=== PATIENT | male | born 1995 | race Caucasian/White ===

== ENCOUNTER 2017-06-24 10:12 | Inpatient (IN) | payer OTHER ==
[~2017-06-24] VITALS: Ht 188 cm; Wt 120.8 kg
[~2017-06-24 10:12] MED LIST: BACTRIM,SEPT1 TABLET PO; BENADRYL50 MG PO; BENZTROPINE MESY1 MG PO; KEFLEX500 MG PO; PEN-VEE K,VEET500 MG PO
[2017-06-24 11:18] LABS: HEMATOCRIT 43.1 % (38.0-50.0); MCH 29.6 PG (29.0-34.0); MCHC 35.3 G/DL (30.0-36.0); MEAN PLAT.VOLUME 10.6 uM^3 (9.0-12.4); PLATELET COUNT 181 K/uL (156-360); RBC DIS.WIDTH-CV 11.7 % (11.8-14.6); RBC DIS.WIDTH-SD 35.5 % (39-53); RED BLOOD COUNT 5.13 M/uL (4.00-5.50); WHITE BLOOD COUNT 7.1 K/uL (4.1-10.2)
[2017-06-24 11:32] LABS: CHLORIDE 107 mEq/L (99-109); POTASSIUM 4.3 mEq/L (3.7-5.4); SODIUM 138 mEq/L (136-147)
[2017-06-24 11:33] LABS: ADD MIUA? NO; BILIRUBIN NEGATIVE; BLOOD NEGATIVE; COLOR YELLOW ((YELLOW)); GLUCOSE (STRIP) NEGATIVE; KETONES NEGATIVE; LEUKOCYTES NEGATIVE; NITRITE NEGATIVE; PROTEIN (STRIP) NEGATIVE; SPECIFIC GRAVITY 1.015 (1.000-1.030); UROBILINOGEN 0.2 MG/DL (0.2-1.0)
[2017-06-24 11:35] LABS: GLUCOSE 106 mg/dL (70-99)
[2017-06-24 11:36] LABS: ANION GAP 7 MEQ/L (2-14)
[2017-06-24 11:37] LABS: SERUM ETHYL ALCOHOL < 10 mg/dL
[2017-06-24 11:38] LABS: ALKALINE PHOSPHATASE 66 IU/L (3-129); GFR ESTIMATE (CALCULATED) > 59 mL/min/ (58.99-99999)
[2017-06-24 11:39] LABS: UREA NITROGEN (BUN) 10 mg/dL (9-23)
[2017-06-24 11:43] LABS: AMPHETAMINE NEGATIVE (500 ng/mL); BARBITURATES NEGATIVE (200 ng/mL); BENZODIAZEPINES NEGATIVE (150 ng/mL); COCAINE PRESUMPTIVE POSITIVE (150 ng/mL); INTERNAL CONTROLS VALID? YES; METHADONE NEGATIVE (200 ng/mL); METHAMPHETAMINE NEGATIVE (500 ng/mL); OPIATES (MORPHINE) PRESUMPTIVE POSITIVE (100 ng/mL); OXYCODONE NEGATIVE (100 ng/mL); PHENCYCLIDINE NEGATIVE (25 ng/mL); PROPOXYPHENE NEGATIVE (300 ng/mL); THC CANNABINOIDS PRESUMPTIVE POSITIVE (50 ng/mL); TRICYCLIC ANTIDEPRESSANTS NEGATIVE (300 ng/mL)
[2017-06-24 11:44] LABS: ADD MEDTOX COMMENT Y
[2017-06-24 17:02] VITALS: BP 121/74
[2017-06-24 17:46] VITALS: BP 121/74
[2017-06-25 07:57] VITALS: BP 110/57
== END 2017-06-25 10:30 | disposition home or self-care (01) | DRG 882 ==
LOC: EME 10:12 → EDOF 13:04 → 1WEST 16:53 → ENRESERV 16:53 → 1WEST 06-25 10:30
PROVIDERS: Emergency Medicine
DX: F43.25 Adjustment disorder with mixed disturbance of emotions and conduct (principal); F11.24 Opioid dependence with opioid-induced mood disorder; R45.850 Homicidal ideations; R45.1 Restlessness and agitation
CPT/HCPCS: 80053; 81003; 84999; 85027; 90837; G0480; J1630; J2060